=== PATIENT | male | born 2005 | race African-American/Black ===

== ENCOUNTER 2023-08-06 16:22 | Emergency (ER) | payer OTHER, SELFPAY ==
[2023-08-06 16:27] VITALS: BP 140/93; PULSE 93; TEMP 37.1; O2SAT 99; BMI 20.3
[2023-08-06 16:37] LABS: Glucometer 345 mg/dL (74-106)
--- NOTE | 2023-08-06 17:06 | ED_ITS ---
HPI HPI - General Adult General Chief complaint: Abdominal Pain Stated complaint: Abdominal Pain Time Seen by Provider: 08/06/23 16:28 Source: patient Mode of arrival: walk-in Limitations: no limitations History of Present Illness HPI narrative: Patient is a 18-year-old male who is presenting to the ER today with chief complaint of diffuse abdominal pain, bilateral groin pain this been going on for the past 2 weeks. Patient went to the urgent care today. Patient needed a work note for today. Patient says that he was recommended to come to the ER to rule out appendicitis. Patient chief concern is appendicitis. Patient has no fever or chills. Patient does do heavy lifting at work anywhere from 50 to 100 pounds, but this is something that he does daily, no acute changes. Patient has had some mild diarrhea, no constipation. No urinary complaints. Patient has no testicular pain. No history of kidney stones. Patient states that the physician at the urgent care that saw him today check bilateral testicles, also did a bilateral hernia check to bilateral inguinal canals. All systems are negative except as noted/marked. All systems reviewed and otherwise negative. Nurses note and vital signs reviewed and patient is not hypoxic. General: The patient appears well and in no apparent distress. Patient is resting comfortably on cart. Patient is not toxic, lethargic, or listless Skin: Warm, dry, no pallor noted. There is no rash noted. No petechiae, purpura. Head: Normocephalic, atraumatic Eye: Normal conjunctiva, no drainage, EOMI. PERRL Ears, Nose, Mouth, and Throat: oral mucosa is moist. Nares patent. Mouth without vesicles. Cardiovascular: Regular Rate and Rhythm, no murmur, gallop, rub Respiratory: Patient is in no distress, no accessory muscle use, lungs are clear to auscultation, no wheezing, rales or rhonchi Back: non-tender, no CVA tenderness bilaterally to percussion. No CT LS midline pain GI: Patient has diffuse mild tenderness to palpation, no masses appreciated. No rebound, guarding, or rigidity noted. No distention. Patient refused bilateral hernia check, bilateral testicle check and evaluation of exam secondary to patient states the doctor at the urgent care just checked him down there and he does not want to have that again. Patient has mild bilateral inguinal tenderness palpation, no lymph nodes palpated bilateral. Musculoskeletal: Patient has full range of motion of all of the extremities, no motor, sensory, or focal neurological deficits Neurological: A&O x4, normal speech Psychiatric: Cooperative Related Data Allergies Allergy/AdvReac Type Severity Reaction Status Date / Time No Known Drug Allergies Allergy Verified 08/06/23 16:32 Opioid HPI Opioid Management Most Recent Opioid Data: Last ED Pain Assessment 08/06/23 16:33 Exam Constitutional Vital Signs, click to edit/add: Last Vital Signs Temp 98.8 F 08/06/23 16:27 Pulse 93 H 08/06/23 16:27 Resp 16 08/06/23 16:27 BP 140/93 H 08/06/23 16:27 Pulse Ox 99 08/06/23 16:27 O2 Del Method Room Air 08/06/23 16:27 Course Vital Signs Vital signs: Vital Signs Temperature 98.8 F 08/06/23 16:27 Pulse Rate 93 H 08/06/23 16:27 Respiratory Rate 16 08/06/23 16:27 Blood Pressure 140/93 H 08/06/23 16:27 Pulse Oximetry 99 08/06/23 16:27 Oxygen Delivery Method Room Air 08/06/23 16:27 Temperature 98.8 F 08/06/23 16:27 Pulse Rate 93 H 08/06/23 16:27 Respiratory Rate 16 08/06/23 16:27 Blood Pressure 140/93 H 08/06/23 16:27 Pulse Oximetry 99 08/06/23 16:27 Oxygen Delivery Method Room Air 08/06/23 16:27 Medical Decision Making MDM Narrative Medical decision making narrative: Patient moved here from [place] in January. Patient has no local PCP or radio commentator. Patient states his last hemoglobin A1c was checked sometime last year. Patient's sugar was in the 300s when he arrived here, it was in the 400s when patient was at urgent care today. Patient is telling people that he just ate [employer] before he arrived, but he told us that he told the same story to the urgent care that he saw in [place]. Patient was given a work note and also placed on Cipro for gastroenteritis. The physician's note was reviewed from [place] urgent care. Patient did have an x-ray as well that showed no acute findings. Patient has no signs or symptoms of acute appendicitis. Patient has no peritoneal signs. Patient's abdominal exam shows most likely muscle skeletal has been going on for 2 weeks. Patient has no flank pain or back pain. Patient says this has been constant for 2 weeks. Education on appendicitis was discussed at bedside along with abdominal wall pain and bilateral groin strain. Patient is encouraged to find a PCP and radio commentator in the area, he has been here since January and has not found a physician to help manage him. Patient does take insulin for type 1 diabetes. Patient will follow-up and was given a PCP list as well. Patient was educated on how we can find an radio commentator in [place] where he lives. No questions at discharge Lab Data Labs: Lab Results 08/06/23 Range/Units 16:34 POC Glucose 345 H (74-106) mg/dL Discharge Plan Discharge Stand Alone Forms: Portal Instructions Chief Complaint: Abdominal Pain Clinical Impression: Bilateral groin pain, Hyperglycemia, Uncontrolled diabetes mellitus, Abdominal wall pain, Abdominal pain Patient Disposition: Home, Self-Care Time of Disposition Decision: 16:59 Print Language: Amharic Instructions: Abdominal Pain (ED), Diabetic Hyperglycemia (ED), Groin Pain (ED) Additional Instructions: You have evidence of abdominal wall pain, and bilateral groin strain. Alternate Tylenol and Motrin every 4 hours as needed for pain. He did not have clinical signs of appendicitis at this time. Follow-up with any need to establish a radio commentator. Call the number on your insurance card for member services, and find out which radio commentator is in your health care plan to establish PCP. Type 1 diabetes care which is extremely important. Referrals: Physician,Non-Staff, MD [Primary Care Provider] - 1 week
== END 2023-08-06 17:12 | disposition home or self-care (01) ==
PROVIDERS: Emergency Provider Emergency Medicine
DX: R10.9 Unspecified abdominal pain (principal); R10.32 Left lower quadrant pain; R10.31 Right lower quadrant pain; E10.65 Type 1 diabetes mellitus with hyperglycemia; Z79.4 Long term (current) use of insulin
CPT/HCPCS: 36415; 99283